=== PATIENT | female | born 1945 | race Caucasian/White ===

== ENCOUNTER 2016-07-31 14:21 | Emergency (ER) | payer MEDICARE, OTHER ==
[~2016-07-31 14:21] MED LIST: ALBUTEROL SULF8.5 GM IH; ALBUTEROL1.25 MG/3 INH; AMBIEN CR6.25 MG/BO; AMBIEN10 MG PO; AMBIEN5 M1 PO; ASPIR 8181 M1 PO; ATIVAN0.5 M1 PO; BABY ASPIRIN81 MG PO; BENADRYL25 M3 PO; BREO ELLIPTA 11 EACH IH; BYSTOLIC10 M1 PO; BYSTOLIC10 MG PO; CALCIUM 500 +1 EAC3 PO; CALCIUM 600 +1 EA11 PO; CALCIUM600 MG PO; CELEBREX50 MG; CPAP; GABAPENTIN800 M2 PO; HYZAAR 100-12.1 EACH PO; HYZAAR 100-12.51 TAB; HYZAAR 100-25 T1 TAB; HYZAAR 100-251 EACH PO; HYZAAR 100-251 TAB PO; LIDODERM700 MG TD; LIPITOR10 M1 PO; LIPITOR10 MG PO; LORAZEPAM0.5 MG PO; MIRALAX17 G2 PO; MUCINEX600 MG PO; NEXIUM40 MG; NEXIUM40 MG PO; NORCO 5/325 TAB1 TAB PO; NORVASC10 M1 PO; NORVASC5 M2 PO; NORVASC5 MG PO; OMEPRAZOLE10 M2 PO; OMEPRAZOLE40 M2 PO; PREDNISONE20 MG PO; ROXICODONE5 M2 PO; SENNA PLUS TAB1 EAC1 PO; SKELAXIN800 M3 PO; SPIRONOLACTONE25 M1 PO; TYLENOL325 M2 PO; ULTRAM50 M1 PO; VALIUM2 M1 PO; VIBRAMYCIN100 MG PO; VITAMIN D-3400 UNIT PO; VITAMIN D2000 UNI1 PO; VITAMIN D2000 UNIT PO; VITAMIN E; WAL-ZYR10 M1 PO; XARELTO10 M1 PO; ZOFRAN4 MG PO; ZOLOFT100 M1 PO; ZOLOFT100 MG; ZOLOFT100 MG PO; ZYRTEC10 MG PO; [UNRECOGNIZED DRUG - REMARK] PO
[2016-07-31 15:09] LABS: ALBUMIN 3.7 g/dl (3.5-5.0); ALKALINE PHOSPHATASE 118 U/L (33-138); ALT/SGPT 26 U/L (12-78); ANION GAP 13 mmol/L (0-20); AST/SGOT 21 U/L (10-40); BILIRUBIN,TOTAL 0.4 mg/dl (0-1.5); BLOOD UREA NITROGEN 17 mg/dl (6-24); CALCIUM 8.9 mg/dl (8.5-10.5); CARBON DIOXIDE-VENOUS 27 mmol/L (22-32); CHLORIDE 105 mmol/l (96-110); CREATININE 0.91 mg/dl (0.50-1.10); GLUCOSE 94 mg/dL (70-110); POTASSIUM 3.9 mmol/L (3.7-5.1); SODIUM 141 mmol/L (135-145); eGFR VALUE FOR BLACK 74 mL/Min
[2016-07-31 15:21] LABS: BASO % 0.1 % (0-2); EOS % 1.4 % (0-7); EOSINOPHIL ABSOLUTE COUNT 0.1 tho/cmm (0.0-0.7); HCT-HEMATOCRIT 38.7 % (34.0-49.0); HGB-HEMOGLOBIN 12.3 gm/dl (12.0-15.5); IMMATURE GRANULOCYTES ABSOLUTE 0.02 tho/cmm (0-0.03); IMMATURE GRANULOCYTES PERCENT 0.2 % (0-0.3); LYMPH % 13.3 % (20-45); LYMPH ABSOLUTE COUNT 1.1 tho/cmm (0.8-4.5); MCH (MEAN CORPUSCULAR HGB) 26.6 pg (28.0-32.0); MCHC MEAN CORPUSCULAR HGB CONC 31.8 % (32.0-36.0); MCV (MEAN CELL VOLUME) 83.8 fl (82.0-96.0); MONO % 9.8 % (0-12); MONOCYTE ABSOLUTE COUNT 0.8 tho/cmm (0.0-1.2); NEUTROPHIL ABSOLUTE COUNT 6.3 tho/cmm (1.6-8.0); NEUTROPHIL-AUTOMATED 6.3 tho/cmm (1.6-8.0); NEUTROPHILS % 75.2 % (40-80); PLATELET COUNT 190 tho/cmm (150-450); RED BLOOD COUNT 4.62 mil/cmm (4.00-5.20); RED CELL DISTRIBUTION WIDTH 15.7 % (12.4-16.4); WHITE BLOOD COUNT 8.4 tho/cmm (4.0-10.0)
[2016-07-31] MEDS ORDERED: AZITHROMYCIN250 M1 PO (15:37)
[2016-07-31] MEDS ORDERED: PREDNISONE20 M1 PO (15:37)
== END 2016-07-31 15:56 ==
LOC: EDMED 14:21
PROVIDERS: Nurse Practitioner Family
DX: J20.9 Acute bronchitis, unspecified (principal); I10 Essential (primary) hypertension; M19.90 Unspecified osteoarthritis, unspecified site; Z87.891 Personal history of nicotine dependence; Z96.659 Presence of unspecified artificial knee joint